=== PATIENT | female | born 1940 | race Two or more races ===

== ENCOUNTER 2023-01-13 09:41 | Emergency (ER) | payer MEDICARE, SELFPAY ==
--- NOTE | ~2023-01-13 | XR_ITS ---
EXAMINATION: XR CHEST CLINICAL INFORMATION: Cough COMPARISON: None available. TECHNIQUE: 2 views of the chest were obtained. FINDINGS: The lungs are hyperinflated. Degenerative changes in the thoracic spine. Heart size is normal. Atherosclerotic calcifications in the thoracic aorta. Prominence of the bilateral tej, right greater than left. There is no gross pneumothorax. No pleural effusion. No focal consolidation to suggest pneumonia. XR/XR chest 2V IMPRESSION: Hyperinflated lungs. Prominence of the bilateral tej, right greater than left, likely on the basis of vascularity, although adenopathy should also be considered. Direct correlation with prior images is recommended and if prior images are provided, an addendum will be dictated. In the absence of prior images, CT scan of the chest is recommended for further evaluation. This study was presented today 01/13/2023 at 11:55 AM for interpretation. Stat results provided at this time as requested by referring provider.
[2023-01-13 10:11] VITALS: BP 153/69; PULSE 75; RESP 16; TEMP 36.6; O2SAT 98; BMI 17.4
--- NOTE | 2023-01-13 11:29 | ED.GENADULT ---
HPI - General Adult General Chief complaint: General Medical Stated complaint: HBP/Cough Time Seen by Provider: 01/13/23 11:02 Source: patient and family (daughter ) Mode of arrival: ambulatory Limitations: no limitations History of Present Illness HPI narrative: This is an 82-year-old female history of hypertension, legally blind presenting with daughter who is concerned that mother has been having high blood pressure readings at home to 107/101 despite taking lisinopril for blood pressure control and has also been experiencing about a week to a week and a half of productive cough of clear sputum, worse at night, therefore patient having difficulties with sleeping. Daughter reports patient traveled from [place] about 3 weeks ago. No known sick contacts. Denies chest pain, shortness of breath, nausea, vomiting, abdominal pain, headache, vision changes, dizziness and weakness Related Data Previous Rx's Medication Instructions Recorded albuterol sulfate 90 mcg/actuation 2 inh inhalation Q4-6H PRN 01/13/23 breath activated powder inhaler shortness of breath or wheezing #1 ea doxycycline hyclate 100 mg capsule 100 mg PO BID 10 days #20 caps 01/13/23 prednisone 20 mg tablet 40 mg (2 x 20 mg) PO DAILY 5 days 01/13/23 #10 tabs Allergies Allergy/AdvReac Type Severity Reaction Status Date / Time No Known Allergies Allergy Verified 01/13/23 10:11 Review of Systems Review of Systems: Constitutional : No Weight loss, No Fever, No Chills, No Fatigue, No Malaise ENT/Mouth : No sore throat, No Rhinorrhea Eyes: No Eye Pain, No Swelling, No Redness Cardiovascular : No Chest Pain, No SOB, No Dyspnea on Exertion, No Orthopnea, No Edema, No Palpitations Respiratory : + Cough, + Sputum, No Wheezing Gastrointestinal : No Nausea, No Vomiting, No Diarrhea, No Constipation, No abdominal Pain, No Hematochezia, No Melena Genitourinary : No Dysuria, No Urinary Frequency, No Hematuria, Musculoskeletal : No joint pain, No Myalgias, No Joint Swelling Skin : No Skin Lesions, No rash Neuro : No Weakness, No Numbness, No Dizziness, No Headache Psych : No Anxiety/Panic, No Depression All other systems reviewed and are negative Yes all other systems are reviewed and are negative PMFSH Past Medical History Attestation statement: The following information was validated with the patient. Source: old records reviewed and nursing notes reviewed Social History Advance Directives: No Advance Directives Information Provided: Yes Physical Exam ED Vital Signs: Vital Signs - 24 hr 01/13/23 10:11 Temperature 97.8 F Pulse Rate 75 Respiratory Rate 16 Blood Pressure 153/69 H Pulse Oximetry 98 Oxygen Delivery Method Room Air BMI result Body Mass Index 17.4 vss Appearance: Alert.? Oriented X3.? No acute distress.? Head: Normocephalic, atraumatic, no step-offs or deformities Neck: Normal inspection.? Neck supple.? CVS: Normal heart rate and rhythm.? Pulses normal.? Respiratory: No respiratory distress.? Breath sounds normal.? Abdomen: Soft and nontender.? Skin: Skin warm and dry.? Normal skin color.? Normal skin turgor.? Extremities: No lower extremity edema.? No calf ttp. 5/5 strength to bilateral upper and lower extremities Neuro: Oriented X 3.? No motor deficit.? No sensory deficit. CN 2-12 intact Medical Decision Making Medical Decision Making [facility] Narrative: 1120 82-year-old female presents with complaints of productive cough of the white/clear sputum as well as high blood pressure readings at home currently taking lisinopril. Physical exam benign. This is likely essential hypertension, unlikely hypertensive urgency, emergency, stroke. Cough likely viral versus pneumonia versus bronchitis. Unlikely pulmonary embolism ( saturating 98% even after ambulation with a pulse rate of 75.) , acute respiratory distress, ACS, pneumothorax. Unlikely NICKIE cough Plan at this time viral testing, chest x-ray. Differential Diagnosis Differential Diagnoses: The differential diagnosis associated with the presentation includes This is likely essential hypertension, unlikely hypertensive urgency, emergency, stroke. Cough likely viral versus pneumonia versus bronchitis. Unlikely pulmonary embolism, acute respiratory distress, ACS, pneumothorax.Unlikely NICKIE cough Admission/Observation Consideration of admission/observation: Escalation of care including admission/observation considered Lab Data MDM Lab Attestation statement: I reviewed the patient's lab results. Labs: Lab Results 01/13/23 Range/Units 10:48 COVID-19 (JOSE) Negative (Negative) COVID-19 Clin Com See Note Influenza Type A (EDUARDO) Negative (Negative) Influenza Type B (EDUARDO) Negative (Negative) Influenza A & B Note See Note Independent Interpretation I performed an independent interpretation of an: Plain X-Ray Radiology Impression Discussion of test interpretation with radiology: I have reviewed the radiologist's reading. Prescription Management I considered prescription management with: Antibiotic Chronic Conditions Patient?s care impacted by: Hypertension Critical Care Time Critical Care Time Critical Care Time: No Discharge Plan Discharge Clinical Impression: Bronchitis Patient Disposition: Home, Self-Care Instructions: Acute Bronchitis (ED) Additional Instructions: Take your medications as prescribed. If you were prescribed antibiotics today, it is important that you take your medication to their entirety, do not skip any doses, do not finish them early. Follow-up with your primary care provider this week. Return to the emergency department with new or worsening symptoms. Such as fevers, chills, chest pain, shortness of breath, nausea, vomiting, dizziness, headache, vision changes, lethargy In case of emergency call 911 Please follow-up with the PCP patient will likely require CT of the chest for further evaluation of findings on x-ray. No need for emergent 1 here today. I attach primary care providers here in the area below XR/XR chest 2V IMPRESSION: Hyperinflated lungs. Prominence of the bilateral tej, right greater than left, likely on the basis of vascularity, although adenopathy should also be considered. Direct correlation with prior images is recommended and if prior images are provided, an addendum will be dictated. In the absence of prior images, CT scan of the chest is recommended for further evaluation. This study was presented today 01/13/2023 at 11:55 AM for interpretation. Stat results provided at this time as requested by referring provider. Prescriptions: New doxycycline hyclate 100 mg capsule 100 mg PO BID 10 Days Qty: 20 0RF prednisone 20 mg tablet 40 mg PO DAILY 5 Days Qty: 10 0RF albuterol sulfate 90 mcg/actuation aerosol powdr breath activated 2 inh inhalation Q4-6H PRN (Reason: shortness of breath or wheezing) Qty: 1 0RF Referrals: [facility] Family Medicine [Provider Group] - 1 day [facility] Primary CareErrol [Provider Group] - 1 day [facility] Primary CareTodd [Provider Group] - 1 day PhysicianRanulfo [Primary Care Provider] - 2 days Stand Alone Forms: Work/School Release
[2023-01-13 11:40] LABS: COVID-19 Test Negative (Negative); IDNOW Serial# 08D9AD1C; IDNOW Serial# BCCEAD1C; Influenza A Negative (Negative); Influenza B2 Negative (Negative)
== END 2023-01-13 12:36 | disposition home or self-care (01) ==
PROVIDERS: Emergency Provider Emergency Medicine
DX: J40 Bronchitis, not specified as acute or chronic (principal); Z11.52 Encounter for screening for COVID-19
CPT/HCPCS: 71046; 87502; 87635; 99282; 99283

== ENCOUNTER 2023-03-19 20:03 | Emergency (ER) | payer OTHER, SELFPAY ==
--- NOTE | ~2023-03-19 | CT_ITS ---
EXAMINATION: CT HEAD WITHOUT CONTRAST CLINICAL INFORMATION: Headache. Very high BP. AMS. COMPARISON: CT brain 01/16/2010. TECHNIQUE: Contiguous axial imaging was performed from the skull base to vertex without intravenous administration of contrast. This CT examination was performed using dose optimization techniques as appropriate, variously including the following: *Automated exposure control *Adjustment of mA and/or kV according to patient size (this includes techniques or standardized protocols for targeted exams where dose is matched to indication/reason for exam; i.e. extremities or head) *Use of iterative reconstruction technique DLP: 552 mGy-cm FINDINGS: There is no acute intra-axial, extra-axial bleed, masses or midline shift. There is hypodensity seen in the left parieto-occipital lobe suspicious for subacute to old ischemic changes. No additional areas of hypodensity seen. The lateral ventricles are symmetrical in size and configuration with mild enlargement. There is mild periventricular hypodensity in both cerebral hemispheres suggestive of chronic small vessel ischemic changes. Bone windows reveal diffuse mucoperiosteal thickening of paranasal sinuses. No scalp soft tissue abnormality seen. CT/CT head/brain wo IV con IMPRESSION: Hypodensity left parietal occipital lobe suspicious for subacute to old ischemic changes. There is no acute intracranial bleed.
[2023-03-19 20:13] VITALS: BP 160/100; PULSE 70; O2SAT 98; BMI 30.1
[2023-03-19 20:23] VITALS: BP 219/90; PULSE 86; TEMP 37.2; O2SAT 96
--- NOTE | 2023-03-19 20:26 | ECG_ITS ---
Test Reason : HIGH BP/DIZZYNESS Blood Pressure : / mmHG Vent. Rate : 078 BPM Atrial Rate : 078 BPM P-R Int : 148 ms QRS Dur : 082 ms QT Int : 410 ms P-R-T Axes : 084 082 078 degrees QTc Int : 467 ms Normal sinus rhythm Minimal voltage criteria for LVH, may be normal variant ( Sokolow-Herr ) Borderline ECG When compared to the previous EKG of No significant changes seen Referred By: Tiffanie Lindsay Electronically Signed By:MOHINDER WILLIS MD
--- NOTE | 2023-03-19 20:30 | ED_ITS ---
HPI - General Adult General Chief complaint: General Medical Stated complaint: CHEST PAIN DIZZINESS Time Seen by Provider: 03/19/23 20:05 Source: patient Mode of arrival: EMS Limitations: no limitations History of Present Illness HPI narrative: Patient comes to the emergency room by ambulance. According to EMS, 911 was called because the patient had been complaining of dizziness, headache, and her blood pressure was 231/95. Then, when patient arrived, she told her nurse that she only had a headache. By the time I spoke with the patient, patient said that she had no symptoms since she did not know what she is doing here. Patient has history of dementia and is unable to give us a clear history. Per EMS, blood pressure with them was 160/100. At this time, patient denies chest pain or shortness of breath, no abdominal pain, patient is legally blind Related Data Previous Rx's Medication Instructions Recorded albuterol sulfate 90 mcg/actuation 2 inh inhalation Q4-6H PRN 01/13/23 breath activated powder inhaler shortness of breath or wheezing #1 ea doxycycline hyclate 100 mg capsule 100 mg PO BID 10 days #20 caps 01/13/23 prednisone 20 mg tablet 40 mg (2 x 20 mg) PO DAILY 5 days 01/13/23 #10 tabs Allergies Allergy/AdvReac Type Severity Reaction Status Date / Time No Known Allergies Allergy Verified 01/13/23 10:11 Review of Systems 2 Review of Systems: Reports headache earlier today, no symptoms at this time Yes Unobtainable due to mental condition (Patient has history of dementia) [facility] Past Medical History Medical History (Updated 03/19/23 @ 21:56 by Tiffanie Lindsay MD) Legally blind Hypertension Social History Social History Advance Directives: No Advance Directives Information Provided: No Physical Exam ED Vital Signs: Vital Signs - 24 hr 03/19/23 20:23 03/19/23 21:08 Temperature 98.9 F Pulse Rate 86 Blood Pressure 219/90 H 209/76 H Pulse Oximetry 96 Oxygen Delivery Method Room Air BMI result Body Mass Index 30.1 Const Other: Appearance: Alert. Oriented X3. No acute distress. Eyes: Patient is legally blind ENT: Pharynx normal. Neck: Normal inspection. Neck supple. No lymph nodes noted. No crepitus CVS: Normal heart rate and rhythm. Pulses normal. Normal S1 and S2 Respiratory: No respiratory distress. Breath sounds normal. No Wheezing. No rales Abdomen: Soft and nontender. No rigidity. No distention. Skin: Skin warm and dry. Normal skin color. Normal skin turgor. Extremities: No lower extremity edema. No Lacerations. No Rash Neuro: Oriented X 3. No motor deficit. No sensory deficit. Moving all extremities. No slurred speech. CN 2 through 12 grossly intact Psych: calm, cooperative, normal affect Course Course Course Narrative: Here in the emergency room, patient blood pressure is 219/90. All of patient's labs and imaging pending -patient given 1 dose of 100 mg p.o. labetalol Medications Administered Discontinued Medications Generic Name Dose Route Start Last Admin Trade Name Freq PRN Reason Stop Dose Admin Labetalol HCl 100 mg 03/19/23 20:31 03/19/23 20:42 Labetalol Hcl 100 Mg Tablet PO 03/19/23 20:32 100 mg ONCE ONE Administration Protocol Medical Decision Making Medical Decision Making [facility] Narrative: -patient's chemistry pending, troponin slightly bumped 2.0. BNP negative. Patient's troponin to be repeated admit -patient's blood pressure 219/90 on arrival, patient was given 100 mg of p.o. labetalol, blood pressure improved to 100 80s systolic. Heart rate in the 60s. Patient states that she no longer has headache. Head CT pending -current blood pressure 1 80s systolic, patient given 1 dose of amlodipine 10 mg. -sign-out given to my colleague Dr. Hardin, please follow-up with the patient's blood pressure, troponin number to admit night and head CT Differential Diagnosis Differential Diagnoses: The differential diagnosis associated with the presentation includes (Hypertensive urgency, hypertensive emergency, hypertension) Admission/Observation Consideration of admission/observation: Escalation of care including admission/observation considered (Patient's blood pressure is still elevated, overall patient feeling better, admission considered) Lab Data [facility] Lab Attestation statement: I reviewed the patient's lab results. 03/19/23 21:06 03/19/23 21:06 Labs: Lab Results 03/19/23 Range/Units 21:06 WBC 7.8 (4.8-10.8) X10*3/uL RBC 3.45 L (4.20-5.50) X10*6/uL Hgb 10.2 L (12.0-16.0) g/dl Hct 31.4 L (37.0-47.0) % MCV 91.0 (80.0-98.0) fL MCH 29.6 (27.0-33.0) pg MCHC 32.5 (31.0-35.0) g/dl RDW 13.7 (11.0-16.0) % Plt Count 253 (160-400) X10*3/uL MPV 11.1 (9.4-12.3) fL Immature Gran % (Auto) 0.3 (0.0-0.4) % Neut % (Auto) 69.4 (45-73) % Lymph % (Auto) 20.6 (20-40) % [place] % (Auto) 6.5 (2-11) % Eos % (Auto) 2.4 (0-4) % Baso % (Auto) 0.8 (0-2) % Lymph # (Auto) 1.6 (1.2-4.9) X10*3/uL [place] # (Auto) 0.5 (0.1-1.2) X10*3/uL Eos # (Auto) 0.2 (0.0-0.4) X10*3/uL Baso # (Auto) 0.1 (0.0-0.2) X10*3/uL Abs Immat Gran (auto) 0.02 (0.00-0.03) X10*3/uL Absolute Neuts (auto) 5.4 (2.0-8.3) x10*3/uL Absolute Nucleated RBC 0.000 (0.0-0.012) X10*3/uL Nucleated RBC % (auto) 0.0 (0.0-0.2) /100WBC PT 11.0 L (11.1-13.3) SEC INR 0.9 (0.9-1.1) Troponin I High Sens 23.0 H (<3.5-17.0) ng/L B-Natriuretic Peptide 54 (<100) pg/mL Urine Color Yellow Urine Appearance Clear Urine pH 6.5 (5.0-9.0) Ur Specific Thayer 1.010 (1.005-1.025) Urine Protein Negative (Neg-Trace) mg/dL Urine Glucose (UA) Negative (Negative) mg/dL Urine Ketones Negative (Negative) mg/dL Urine Blood Trace H (Negative) Urine Nitrite Negative (Negative) Ur Leukocyte Esterase Moderate (2+) H (Negative) Urine RBC 3-5 H (0-2) /HPF Urine WBC 6-10 H (0-5) /HPF Ur Squamous Epith Cells 0-2 (0-2) /HPF Urine Bacteria None Seen (None Seen) Hyaline Casts 0-2 (0-2) /LPF Critical Care Time Critical Care Time Critical Care Time: Yes Total Critical Care Time: 60 Attestation: I have personally provided critical care time. Time includes review of lab data, radiology results, discussion with consultants, and monitoring for potential decompensation. Intervention performed as documented. Discharge Plan Discharge Clinical Impression: Hypertensive urgency, Headache Patient Disposition: Still a Patient Prescriptions: No Action doxycycline hyclate 100 mg capsule 100 mg PO BID 10 Days Qty: 20 0RF prednisone 20 mg tablet 40 mg PO DAILY 5 Days Qty: 10 0RF albuterol sulfate 90 mcg/actuation aerosol powdr breath activated 2 inh inhalation Q4-6H PRN (Reason: shortness of breath or wheezing) Qty: 1 0RF
[2023-03-19] MEDS: Labetalol HCL 100 MG TABLET PO (20:42)
[2023-03-19 21:08] VITALS: BP 209/76
[2023-03-19 21:13] LABS: MANUAL DIFF FLAG NO
[2023-03-19 21:15] LABS: Basophils Absolute Auto 0.1 X10*3/uL (0.0-0.2); Basophils Percent Auto 0.8 % (0-2); Eosinophils Absolute Auto 0.2 X10*3/uL (0.0-0.4); Eosinophils Percent Auto 2.4 % (0-4); Hematocrit 31.4 % (37.0-47.0); Hemoglobin 10.2 g/dl (12.0-16.0); Imm Gran Abs Auto 0.02 X10*3/uL (0.00-0.03); Imm Gran Pct Auto 0.3 % (0.0-0.4); Lymphocytes Absolute Auto 1.6 X10*3/uL (1.2-4.9); Lymphocytes Percent Auto 20.6 % (20-40); Mean Corpuscular HGB Conc 32.5 g/dl (31.0-35.0); Mean Corpuscular Hemoglobin 29.6 pg (27.0-33.0); Mean Platelet Volume 11.1 fL (9.4-12.3); Monocytes Absolute Auto 0.5 X10*3/uL (0.1-1.2); Monocytes Percent Auto 6.5 % (2-11); Neutrophils Absolute Auto 5.4 x10*3/uL (2.0-8.3); Neutrophils Percent Auto 69.4 % (45-73); Platelet Count 253 X10*3/uL (160-400); Red Blood Count 3.45 X10*6/uL (4.20-5.50); Red Cell Distribution Width 13.7 % (11.0-16.0); White Blood Count 7.8 X10*3/uL (4.8-10.8)
[2023-03-19 21:16] LABS: Appearance Urine Clear; Color Urine Yellow; Glucose Urine UA Negative (Negative); Leukocyte Esterase Urine Moderate (2+) (Negative); Nitrite Urine Negative (Negative); PH 6.5 (5.0-9.0); UMIC TRIGGER UACC YES; Urine Blood Trace (Negative); Urine Ketones Negative (Negative); Urine Protein Negative (Neg-Trace)
[2023-03-19 21:20] LABS: INTERNATIONAL NORM RATIO 0.9 (0.9-1.1)
[2023-03-19 21:21] LABS: Bacteria Urine None Seen (None Seen); Hyaline Casts Urine 0-2 /LPF (0-2); Squamous Epithelial Cell Urine 0-2 /HPF (0-2); UACC Culture Trigger YES
[2023-03-19 21:35] LABS: B Type Natriuretic Peptide 54 pg/mL (<100)
--- NOTE | 2023-03-19 21:37 | PC.NURSE ---
PT STARTED TO VERBALLY YELL AT STAFF AND HIT SELF, PROVIDER AWARE, SECURITY CALLED , PT MEDICATED
[2023-03-19 21:54] VITALS: BP 173/71; PULSE 62
[2023-03-19 22:10] VITALS: BP 185/68; PULSE 63
[2023-03-19] MEDS: amLODIPine Besylate 10 MG TABLET PO (22:16)
[2023-03-19 22:50] LABS: Alanine Aminotransferase 12 U/L (0-31); Albumin Level 3.7 g/dL (3.5-5.0); Alkaline Phosphatase 59 U/L (39-117); Anion Gap 11 (12-20); Aspartate Amino Transferase 18 U/L (5-31); Bilirubin Direct 0.1 mg/dL (0.0-0.5); Bilirubin Total 0.3 mg/dL (0.0-1.0); Blood Urea Nitrogen 21 mg/dL (9-16); Calcium 9.8 mg/dL (8.4-10.2); Carbon Dioxide 29 mmol/L (22-29); Chloride 106 mmol/L (96-108); Creatinine Clr Calc Pharmacy 45.8; Estimated Glomerular Filt Rate > 60; Glucose Random 120 mg/dL (60-115); Potassium 4.3 mmol/L (3.3-5.1); Sodium 142 mmol/L (135-145); Total Protein 6.7 g/dL (6.5-8.0)
[2023-03-19 22:57] LABS: Troponin-I High Sensitivity 25.1 ng/L (<3.5-17.0)
[2023-03-19 23:44] VITALS: BP 176/73
[2023-03-19] MEDS: Aspirin Enteric Coated 81 MG TABLET.DR PO (23:55)
== END 2023-03-20 00:09 | disposition home or self-care (01) ==
PROVIDERS: Emergency Medicine; Emergency Provider Internal Medicine; PCP Internal Medicine
DX: I16.0 Hypertensive urgency (principal); R51.9 Headache, unspecified; R42 Dizziness and giddiness; I10 Essential (primary) hypertension; Z79.899 Other long term (current) drug therapy
CPT/HCPCS: 36415; 70450; 80048; 80076; 81001; 83880; 84484; 85025; 85610; 87086; 93005; 99284; 99285

== ENCOUNTER → 2023-03-19 20:26 | Outpatient (BNV) | payer OTHER, SELFPAY | PROVIDERS: Emergency Provider Internal Medicine; PCP Internal Medicine; Visit Provider Internal Medicine Cardiovascular Disease | DX: R07.9 Chest pain, unspecified (principal) | CPT/HCPCS: 93010 ==

== ENCOUNTER 2023-03-21 09:19 | Outpatient (REF) | payer OTHER, SELFPAY ==
[2023-03-21 09:48] LABS: MANUAL DIFF FLAG NO
[2023-03-21 09:57] LABS: Basophils Absolute Auto 0.1 X10*3/uL (0.0-0.2); Basophils Percent Auto 1.3 % (0-2); Eosinophils Absolute Auto 0.2 X10*3/uL (0.0-0.4); Eosinophils Percent Auto 3.2 % (0-4); Hematocrit 35.8 % (37.0-47.0); Hemoglobin 11.5 g/dl (12.0-16.0); Imm Gran Abs Auto 0.01 X10*3/uL (0.00-0.03); Imm Gran Pct Auto 0.2 % (0.0-0.4); Lymphocytes Absolute Auto 2.1 X10*3/uL (1.2-4.9); Lymphocytes Percent Auto 33.8 % (20-40); Mean Corpuscular HGB Conc 32.1 g/dl (31.0-35.0); Mean Corpuscular Hemoglobin 29.1 pg (27.0-33.0); Mean Corpuscular Volume 90.6 fL (80.0-98.0); Mean Platelet Volume 10.6 fL (9.4-12.3); Monocytes Absolute Auto 0.4 X10*3/uL (0.1-1.2); Neutrophils Absolute Auto 3.5 x10*3/uL (2.0-8.3); Neutrophils Percent Auto 55.5 % (45-73); Platelet Count 320 X10*3/uL (160-400); Red Blood Count 3.95 X10*6/uL (4.20-5.50); White Blood Count 6.3 X10*3/uL (4.8-10.8)
[2023-03-21 10:45] LABS: Alanine Aminotransferase 15 U/L (0-31); Albumin Level 4.2 g/dL (3.5-5.0); Alkaline Phosphatase 69 U/L (39-117); Anion Gap 12 (12-20); Aspartate Amino Transferase 20 U/L (5-31); Bilirubin Total 0.7 mg/dL (0.0-1.0); Blood Urea Nitrogen 18 mg/dL (9-16); Carbon Dioxide 32 mmol/L (22-29); Chloride 102 mmol/L (96-108); Cholesterol 195 mg/dL (<200); Estimated Glomerular Filt Rate 51; Glucose Random 107 mg/dL (60-115); HDL Cholesterol 77 mg/dL (>40); LDL Cholesterol Calculated 102 mg/dL (<100); Sodium 142 mmol/L (135-145); Total Protein 7.7 g/dL (6.5-8.0); Triglycerides 84 mg/dL (<150)
== END 2023-03-21 09:20 | disposition home or self-care (01) ==
LOC: HO.LAB 09:19
PROVIDERS: PCP Internal Medicine; Visit Provider Internal Medicine
DX: Z00.01 Encounter for general adult medical examination with abnormal findings (principal); R93.89 Abnormal findings on diagnostic imaging of other specified body structures; I10 Essential (primary) hypertension; H54.3 Unqualified visual loss, both eyes; H35.30 Unspecified macular degeneration; F02.80 Dementia in other diseases classified elsewhere, unspecified severity, without behavioral disturbance, psychotic disturbance, mood disturbance, and anxiety; R82.90 Unspecified abnormal findings in urine
CPT/HCPCS: 36415; 80053; 80061; 82306; 85025; 87086

== ENCOUNTER 2023-03-24 10:44 | Outpatient (REF) | payer OTHER, SELFPAY ==
[2023-03-26 22:09] LABS: TS Negative Control Passed; TS Panel A 1; TS Panel B 0; TS Positive Control Passed; TSpotTB Negative (Negative)
== END 2023-03-24 10:45 | disposition home or self-care (01) ==
LOC: HO.LAB 10:44
PROVIDERS: PCP Internal Medicine; Visit Provider Internal Medicine
DX: Z00.01 Encounter for general adult medical examination with abnormal findings (principal); F02.80 Dementia in other diseases classified elsewhere, unspecified severity, without behavioral disturbance, psychotic disturbance, mood disturbance, and anxiety; H35.30 Unspecified macular degeneration; H54.3 Unqualified visual loss, both eyes; I10 Essential (primary) hypertension; R93.89 Abnormal findings on diagnostic imaging of other specified body structures
CPT/HCPCS: 36415; 86481

== ENCOUNTER 2023-08-13 11:35 | Outpatient (REF) | payer OTHER, SELFPAY ==
[2023-08-13 13:11] LABS: MANUAL DIFF FLAG NO
[2023-08-13 13:18] LABS: Basophils Absolute Auto 0.1 X10*3/uL (0.0-0.2); Eosinophils Absolute Auto 0.2 X10*3/uL (0.0-0.4); Hematocrit 35.8 % (37.0-47.0); Hemoglobin 11.3 g/dl (12.0-16.0); Imm Gran Abs Auto 0.02 X10*3/uL (0.00-0.03); Imm Gran Pct Auto 0.2 % (0.0-0.4); Lymphocytes Absolute Auto 2.1 X10*3/uL (1.2-4.9); Mean Corpuscular HGB Conc 31.6 g/dl (31.0-35.0); Mean Platelet Volume 10.7 fL (9.4-12.3); Monocytes Absolute Auto 0.5 X10*3/uL (0.1-1.2); Monocytes Percent Auto 6.3 % (2-11); Neutrophils Absolute Auto 5.2 x10*3/uL (2.0-8.3); Neutrophils Percent Auto 64.5 % (45-73); Platelet Count 281 X10*3/uL (160-400); Red Blood Count 3.77 X10*6/uL (4.20-5.50); Red Cell Distribution Width 14.4 % (11.0-16.0)
[2023-08-13 13:53] LABS: Ferritin 26 ng/mL (10-250)
[2023-08-13 14:06] LABS: Folate > 20.0 ng/mL (> or = 4.0); Vitamin B12 893 pg/mL (200-900)
== END 2023-08-13 11:36 | disposition home or self-care (01) ==
LOC: HO.10HDL 11:35
PROVIDERS: Visit Provider Internal Medicine
DX: D64.9 Anemia, unspecified (principal); F01.50 Vascular dementia, unspecified severity, without behavioral disturbance, psychotic disturbance, mood disturbance, and anxiety; H54.3 Unqualified visual loss, both eyes; I10 Essential (primary) hypertension; R05.9 Cough, unspecified; R32 Unspecified urinary incontinence
CPT/HCPCS: 36415; 82607; 82728; 82746; 85025; 87086

== ENCOUNTER 2023-11-12 11:02 | Outpatient (REF) | payer OTHER, SELFPAY | END 2023-11-12 11:03 | disposition home or self-care (01) | LOC: HO.10HDLNP 11:02 | PROVIDERS: Visit Provider Internal Medicine | DX: N39.0 Urinary tract infection, site not specified (principal) | CPT/HCPCS: 87086 ==

== ENCOUNTER 2023-12-29 14:20 | Outpatient (AMB) | payer OTHER, SELFPAY ==
[2023-12-29 14:43] VITALS: BP 132/70; PULSE 65; O2SAT 97; BMI 20.9
--- NOTE | 2023-12-29 14:43 | MHC.OFFVIS ---
Vital Signs 12/29/23 14:43 Height 5 ft Weight 106 lb 14.787 oz BMI 20.9 BP 132/70 Blood Pressure Location Rt brachial Position Sitting Pulse 65 Pulse Source Pulse Oximeter Pulse Oximetry (%) 97 Oxygen Delivery Method Room Air Intake Visit Reasons: chronic cough Allergies No Known Allergies Allergy (Verified 12/29/23 14:49) HPI HPI chronic cough: Details: Chica is pleasant 83 year old female, never smoker, with underlying HTN and legally blind. She was referred by PCP for pulmonary evaluation for chronic cough. She is accompanied by her daughter and ambulating in a wheelchair. She reports dry cough for many years and attributes it to prior exposure while living in [place], moved here last year, where there was extensive diesel fumes/exhaust in her neighborhood. She denies wheezing, chest tightness or dyspnea. She denies fevers or chills. She denies reflux. She denies h/o asthma. She was recently prescribed albuterol with a nebulizer and has been using with good effect. She has previously trialed antibiotics, prednisone, antihistamines and OTC medications with minimal change. She does note more notable cough with eating and drinking. Denies prior barium swallow evaluation. She reports daughter with asthma otherwise no pertinent family history. She denies second hand smoke exposure. [facility] Medical History (Updated 12/30/23 @ 15:07 by Tiffanie Smith NP) Legally blind Hypertension Social History (Updated 12/29/23 @ 14:49 by Josy Price CMA) Patient Tobacco Use Status: Never used Tobacco Review of Systems Const Denies chills, Denies excessive sweating, Denies fever(s), Denies headache(s) and Denies night sweats Eyes Denies dry eyes, Denies irritation and Denies itchy eyes ENT Reports Normal hearing present, Denies headache(s), Denies nasal congestion, Denies nasal discharge, Denies post nasal drip and Denies sore throat Card Denies chest pain, Denies chest pain at rest, Denies chest pain with activity, Denies claudication, Denies leg edema, Denies dyspnea, Denies dyspnea on exertion, Denies orthopnea and Denies paroxysmal nocturnal dyspnea Resp Denies chest congestion, Denies excessive phlegm production, Denies pain on inspiration, Denies pain with cough, Denies dyspnea, Denies dyspnea on exertion, Denies stridor and Denies wheezing Musc Denies myalgias Neuro Reports Normal hearing present and Denies headache(s) Endo Denies excessive sweating Marcio/Lymph Denies lymphadenopathy Aller/Immun Denies itchy eyes, Denies seasonal rhinorrhea and Denies wheezing Physical Exam Vital Signs: Last Vital Signs Pulse 65 12/29/23 14:43 BP 132/70 12/29/23 14:43 Pulse Ox 97 12/29/23 14:43 Oxygen Delivery Method Room Air 12/29/23 14:43 BMI result Body Mass Index 20.9 Const General: cooperative, healthy appearing, comfortable, no acute distress, well developed and alert Nutritional Appearance: thin Orientation/consciousness: oriented to person and oriented to place Limitations: wheelchair HEENT Head: Yes normal to inspection, Yes normocephalic and Yes atraumatic Ears: hearing grossly normal bilaterally and external ears normal Eyes General: appearance normal, both eyes and all related structures Eyelids: Yes eyelids normal Sclerae: sclerae normal EOM: EOMs intact bilaterally Neck Neck: Yes normal visual inspection and Yes no lymphadenopathy Lymphatic: no lymphadenopathy noted Chest Chest palpation & inspection: normal inspection of the chest Resp Effort & Inspection: normal respiratory effort, able to speak in complete sentences, no audible wheezes, Actively coughing, no stridor, not tachypneic, no tripod positioning and no use of accessory muscles Auscultation: diminished lung sounds Cardio Jugular venous distension: no JVD Rate: regular rate Rhythm: regular rhythm Skin Other: warm, dry General skin exam: no rashes or lesions noted Neuro General: oriented to person and oriented to place Cranial nerves: Yes Normal hearing present Cognition (Neuro): normal cognition Gait exam (Neuro): Normal gait present Extrem General: Yes normal to inspection, Yes capillary refill normal, Yes no clubbing, cyanosis or edema and Yes no pedal edema Psych Appearance: grossly normal and well kempt Speech and movement: Normal speech and movement present and Clear speech present Affect: normal affect Attitude: cooperative Thought process: Normal thought process present Thought content: Normal thought content present Insight: Good insight present (Psych) Judgement: Good judgement present (Psych) Assessment & Plan Assessment & Plan (1) Chronic cough: Code(s): R05.3 - Chronic cough Category: Medical (2) Dysphagia: Code(s): R13.10 - Dysphagia, unspecified Category: Medical Plan Chica's symptoms are likely multifactorial. She reports good effect with albuterol nebulizer, advised to continue. She notes coughing worsens with eating/drinking. Will send for barium swallow as patient may have a component of microaspiration. Will also obtain CXR today. All questions were answered and patient is in agreement of plan. Will follow up in 6-8 weeks or sooner if needed. Orders: Orders XR chest 2V 12/29/23 R05.3 - Chronic cough FL Modified Barium Swallow Today R05.3 - Chronic cough, R13.10 - Dysphagia, unspecified Coding Level of Care Code New Pt Level 4 (51179) Diagnoses Chronic cough R05.3 Dysphagia R13.10
== END 2023-12-29 15:18 | disposition home or self-care (01) ==
PROVIDERS: PCP Internal Medicine; Referring Provider Internal Medicine; Visit Provider Nurse Practitioner Family
DX: R05.3 Chronic cough (principal); R13.10 Dysphagia, unspecified
CPT/HCPCS: 99204

== ENCOUNTER 2023-12-29 14:20 | Outpatient (REF) | payer OTHER, SELFPAY ==
--- NOTE | ~2023-12-29 | XR_ITS ---
EXAMINATION: XR CHEST CLINICAL INFORMATION: Chronic cough COMPARISON: 01/13/2023 TECHNIQUE: 2 views of the chest were obtained. FINDINGS: Heart, mediastinum and vascularity within normal limits. Aortic calcified hyperinflation. No consolidations. Vague opacity identified posterior lung base on lateral view. No effusions or pneumothoraces. Demineralization and flowing osteophytes. XR/XR chest 2V IMPRESSION: Posterior opacity, possibly atelectasis, underlying lesion not excluded. Consider short-term radiographic follow-up. Electronically signed by: Kandy Mendoza MD 12/30/2023 08:42 AM EST
== END 2023-12-29 14:21 | disposition home or self-care (01) ==
LOC: HO.XRAY 14:20
PROVIDERS: PCP Internal Medicine; Referring Provider Internal Medicine; Visit Provider Nurse Practitioner Family
DX: R05.3 Chronic cough (principal); R13.10 Dysphagia, unspecified
CPT/HCPCS: 71046; 99202

== ENCOUNTER 2024-01-28 14:18 | Outpatient (REF) | payer OTHER, SELFPAY ==
--- NOTE | ~2024-01-28 | FL_ITS ---
EXAMINATION: Modified Barium Swallow CLINICAL INFORMATION: Dysphagia. COMPARISON: None. TECHNIQUE: Modified barium swallow was performed under lateral fluoroscopy with patient in standing position. Barium mixed with solids and liquids of different consistencies was administered by the speech pathologist. Examination was recorded in the fluoroscopy suite. FINDINGS: Trace laryngeal penetration seen with thin barium. No aspiration was observed. FLUOROSCOPY TIME: 1 minute 27 seconds Number of Spot Images: 1/A DOSE AREA PRODUCT: 565 uGy-m2 (microgray-meter squared) FL/FL Modified Barium Swallow IMPRESSION: 1. Trace laryngeal penetration with thin barium. No subglottic aspiration was observed. Refer to the speech therapy report for further clarification This procedure was performed by Higinio Marie PA-C, and supervised by Dr. Riddle Electronically signed by: Alessandro Riddle MD 02/06/2024 03:55 PM AUGUST
--- NOTE | 2024-01-30 16:53 | MHC.SL.IMP ---
Date of Plan of Treatment: 01/28/24 Onset of Symptoms/Illness: 01/05/24 Date Treatment Started: 01/28/24 Admitting Diagnosis: Chronic cough Primary Speech & Language Diagnosis: R13.12 Oropharyngeal Phase Dysphagia Reason for Today's Visit: 58673 Modified Barium Swallow Study Pre-evaluation Dietary Consistencies: Regular Pre-evaluation Liquid Consistency: Thin Pre-evaluation Medication Administration: Whole with Liquid Medical History: Modified Barium Swallow Study Fluoroscopic Evaluation of Swallowing Function CPT Code 31305 Evaluation Year: 2023 Reason for Study: Difficulty swallowing Referring Physician: Tiffanie Smith COMPRESSOR SERVICE TECHNICIAN Evaluating Clinician: Heena Rivas MA, CCC-INSTRUMENT FITTER Study Number: 1 Patient Name: Chica Ortega Status: Outpatient Age: 83 Gender: Female Medical History HTN, legally blind Current (pre-evaluation) Intake/Diet: Route: PO Diet Grade: Regular Liquid Consistencies: Thin Pre-Study Functional Oral Intake Scale (FOIS): 7- Total oral intake with no restrictions Pain: None reported at time of study SUBJECTIVE: Patient is an 83 year old female referred for a modified barium swallow study by the Pulmonology office. She has been experiencing chronic cough and coughing with eating and drinking as well. Patient denies odynophagia and globus sensation. She is not on a modified diet at this time. Oral Motor Exam Facial Symmetry: Symmetrical Mouth Occlusion: Normal Oral-Facial Teeth Characteristics: Partially Missing Spaces Tongue Size: Normal Is patient able to manage secretions?: Yes Is patient able to produce volitional cough?: Yes Food and Liquid Trials: Oral Impairment: Lip Closure: Did not test Oral Impairment: Tongue Control During Bolus Hold: Did not test Oral Impairment: Bolus Preparation/Mastication: 1=Slow prolonged chewing/mashing with complete re-collection Oral Impairment: Bolus Transport/Lingual Motion: 2=Slowed tongue motion Oral Impairment: Oral Residue: 2=Residue collection on oral structures Oral Impairment:Initiation of Pharyngeal Swallow: 3=Bolus head in pyriforms Pharyngeal Impairment: Soft Palate Elevation: 0=No bolus between soft palate (SP)/pharyngeal wall (PW) Pharyngeal Impairment: Laryngeal Elevation: 1=Partial thyroid cartilage/arytenoids to epiglottic petiole movement Pharyngeal Impairment: Anterior Hyoid Excursion: 1=Partial anterior movement Pharyngeal Impairment: Epiglottic Movement: 1=Partial inversion Pharyngeal Impairment: Laryngeal Vestibular Closure:: 1=Incomplete: narrow column air/contrast in laryngeal vestibule Pharyngeal Impairment: Pharyngeal Stripping Wave: 1=Present: diminished Pharyngeal Impairment: Pharyngeal Contraction: Did not test Pharyngeal Impairment: Pharyngoesophageal Segment Openin=Partial distention/partial duration: partial obstruction of flow Pharyngeal Impairment: Tongue Base (TB) Retraction: 3=Wide column of contrast/air between TB and posterior PW Pharyngeal Impairment: Pharyngeal Residue: 2=Collection of residue within or on pharyngeal structures Pharyngeal Impairment: Esophageal Clearance Upright Position: Did not test Impressions and Recommendations Clinical Observations: OBJECTIVE: Time-out: performed at 15:00 Evaluation Start: 14:30; Stop: 14:40 Patient Positioning: Standing Viewing Planes: LATERAL ONLY Contrast: MBSImP? Standardized Protocol using commercially prepared, standardized Barium viscosities, including: Varibar? THIN LIQUID (40% w/v, <15 cps) , Varibar? PUDDING (40% w/v, <5020-1433 cps) , 1/2 Shortbread Cookie (1 x1 x.25 ) MBSImP ID: [id number] MBSImP Results: Lip closure for intraoral bolus containment could not be assessed due to logistical reasons not related to physiologic impairment. Tongue control during bolus hold could not be assessed due to logistical reasons not related to physiologic impairment. Bolus preparation and mastication resulted in slow, prolonged chewing/mashing but with complete re-collection. Bolus transport/lingual motion was with slowed tongue motion. Oral residue was a collection on oral structures. Initiation of the pharyngeal swallow occurred when the bolus head was in the pyriform sinuses. Soft palate elevation resulted in no bolus between the soft palate and the pharyngeal wall. Laryngeal elevation was decreased, with partial superior movement of the thyroid cartilage/partial approximation of the arytenoids to the epiglottic petiole. Anterior hyoid excursion demonstrated partial anterior movement. Epiglottic movement resulted in partial inversion. Laryngeal vestibular closure was incomplete, with a narrow column of air/contrast noted within the laryngeal vestibule at the height of the swallow. Pharyngeal stripping wave was present, but diminished. Pharyngeal contraction could not be determined due to logistical reasons not related to physiologic impairment. Pharyngoesophageal segment opening demonstrated partial distension/partial duration, with partial obstruction of bolus flow. Tongue base retraction allowed a wide column of contrast or air between the retracted tongue base and the posterior pharyngeal wall. Pharyngeal residue was a collection of residue within or on pharyngeal structures. Esophageal clearance in the upright position could not be assessed due to logistical reasons not related to physiologic impairment. Oral Impairment Score: 8 (absence of score, component 1component 2) Pharyngeal Impairment Score: 11 (absence of score, component 13) Esophageal Impairment Score: --- (absence of score, component 17) Laryngeal Penetration and Aspiration: Penetration was observed in today's study. Thin Contrast entered the airway, remained above the vocal folds, and was ejected from the airway. ASSESSMENT: Clinician Assessment: This exam was conducted by the radiologist and the speech pathologist. Patient was standing for lateral view only. She fed herself without difficulty and trialed thin (via cup sips), puree, and regular texture solid. Mastication was slowed and prolonged, characterized by piece meal deglutition. Also note slowed posterior lingual movement. There was mild residue coating the tongue and floor of mouth. Pharyngeal swallow trigger was delayed, initiated as the bolus reached the pyriforms. No evidence of nasopharyngeal reflux. Partial laryngeal elevation with partial epiglottic inversion and partial laryngeal vestibular closure. Episode of flash penetration with sip of thin liquid. No evidence of aspiration with intake of liquids and solids during this exam. Mild to moderate pooling in the valleculae and pyriform sinuses with coating on the tongue base. Pharyngeal residue was mostly cleared with subsequent swallows. Partial distention and partial duration through the pharyngoesophgeal segment opening. Liquid Intake Recommendation: Thin Liquid Intake Strategies: Small Sips Dietary Recommendations: Regular Medication Administration: Whole with Liquid Please contact the pharmacy regarding appropriate crushable or liquid drug formulations that are available whenever modified delivery is recommended. Compensatory Strategies Recommended: Sitting Upright (90 deg), Small Bites and Sips, Alternate Liquids/Solids, Rate of Ingestion Change, Avoid Specific Foods Recommendation for Speech Therapy: NA:Typical Evaluation Text Comment: Intake Recommendations: Route: PO Diet Grade: Regular Liquid Consistencies: Thin Post-Study Functional Oral Intake Scale (FOIS): 7- Total oral intake with no restrictions Recommend regular texture solids and thin liquids, pills whole with liquid. Avoid foods which are overly tough, crunchy, or hard to chew. Strategies recommended to promote clearance: take small bites, chew food well, alternate bites with sips of liquid, and maintain upright position with PO intake. Diet modification and further ST intervention is not warranted at this time. Recommend patient continue to monitor her dysphagia. If there are any changes or worsening/persistent symptoms, contact PCP at which point a repeat-assessment may be warranted. Suggested Referrals: The patient might benefit from a referral to: GI Indication for Referral: Radiologist noted anatomical abnormality (? Anterior cervical esophageal web). Recommend further imaging to investigate. Therapy Recommendations: Therapy will be discontinued Clinician - Supplemental, Miscellaneous Communication: It is important to note MBSS objective studies are snapshots in time and Patient function might vary with factors such as time of day or concomitant medical conditions. For this reason, the final treatment plan for this patient should rest with their medical care team. Additional recommendations should be considered with the totality of the Patient in mind. Thank for the opportunity to participate in the care of this patient. If you have any questions about the content of this report, please contact the [facility] at [facility]. Education: Education regarding findings from today's study and plans for therapy were provided to Patient and family/caregiver through Verbal Instruction. Understanding was expressed by the Patient and family/caregiver. Childbirth Educator Clinician/Clinical Fellow: No Supervisory Statement: N/A Speech Language Pathologist: Heena Rivas M.A., [facility]-INSTRUMENT FITTER
== END 2024-01-28 14:19 | disposition home or self-care (01) ==
LOC: HO.XRAY 14:18
PROVIDERS: PCP Internal Medicine; Visit Provider Nurse Practitioner Family
DX: R13.10 Dysphagia, unspecified (principal); R05.3 Chronic cough
CPT/HCPCS: 74230; 92611

== ENCOUNTER → 2024-01-28 14:30 | Outpatient (BNV) | payer OTHER, SELFPAY | PROVIDERS: PCP Internal Medicine; Visit Provider Physician Assistant Surgical | DX: R13.10 Dysphagia, unspecified (principal) | CPT/HCPCS: 74230 ==

== ENCOUNTER 2024-02-23 14:57 | Outpatient (AMB) | payer OTHER, SELFPAY ==
[2024-02-23 15:01] VITALS: BP 140/78; PULSE 91; O2SAT 96; BMI 20.7
--- NOTE | 2024-02-23 15:01 | MHC.OFFVIS ---
Vital Signs 02/23/24 15:01 Height 5 ft Weight 106 lb BMI 20.7 BP 140/78 H Blood Pressure Location Rt brachial Position Sitting Pulse 91 Pulse Source Pulse Oximeter Pulse Oximetry (%) 96 Oxygen Delivery Method Room Air Intake Visit Reasons: Cough Assistant Activities Director Required: No Supervisor Policy Change Clerks: Supervisor Policy Change Clerks offered & declined Allergies No Known Allergies Allergy (Verified 02/23/24 15:06) Medication List - Last Reconciled 02/23/24 by Lizzy Cerrato LPN albuterol sulfate 2.5 mg inhalation Q4-6H PRN amlodipine 5 mg PO DAILY aspirin 81 mg PO DAILY doxycycline hyclate 100 mg PO BID 10 days ipratropium-albuterol 0.5 mg-3 mg(2.5 mg base)/3 mL 3 mL inhalation BID prednisone 40 mg (2 x 20 mg) PO DAILY 5 days HPI HPI Cough: Details: Chica is pleasant 83 year old female, never smoker, with underlying HTN and legally blind. She was initially referred by PCP for pulmonary evaluation for chronic cough. She is accompanied by her daughter and ambulating in a wheelchair. She reports dry cough for many years and attributes it to prior exposure while living in [place], moved here last year, where there was extensive diesel fumes/exhaust in her neighborhood. Today her cough is more wet in nature and more persistent per daughter. She denies wheezing, chest tightness or dyspnea. She denies fevers or chills. She has been using nebulized albuterol however daughter feels it has not been as effective. She also noted worsening cough with food/fluid intake and presents today to review MBSS and CXR results. [facility] Medical History (Updated 02/23/24 @ 16:38 by Tiffanie Smith NP) Legally blind Hypertension Social History (Updated 12/29/23 @ 14:49 by Josy Price CMA) Patient Tobacco Use Status: Never used Tobacco Review of Systems Const Denies chills, Denies excessive sweating, Denies fever(s), Denies headache(s) and Denies night sweats Eyes Denies dry eyes, Denies irritation and Denies itchy eyes ENT Reports Normal hearing present, Denies headache(s), Denies nasal congestion, Denies nasal discharge, Denies post nasal drip and Denies sore throat Card Denies chest pain, Denies chest pain at rest, Denies chest pain with activity, Denies claudication, Denies leg edema, Denies dyspnea, Denies dyspnea on exertion, Denies orthopnea and Denies paroxysmal nocturnal dyspnea Resp Denies chest congestion, Denies excessive phlegm production, Denies pain on inspiration, Denies pain with cough, Denies dyspnea, Denies dyspnea on exertion, Denies stridor and Denies wheezing Musc Denies myalgias Neuro Reports Normal hearing present and Denies headache(s) Endo Denies excessive sweating Marcio/Lymph Denies lymphadenopathy Aller/Immun Denies itchy eyes, Denies seasonal rhinorrhea and Denies wheezing Physical Exam Vital Signs: Last Vital Signs Pulse 91 02/23/24 15:01 BP 140/78 H 02/23/24 15:01 Pulse Ox 96 02/23/24 15:01 Oxygen Delivery Method Room Air 02/23/24 15:01 BMI result Body Mass Index 20.7 Const General: cooperative, healthy appearing, comfortable, no acute distress, well developed and alert Nutritional Appearance: thin Orientation/consciousness: oriented to person and oriented to place Limitations: wheelchair HEENT Head: Yes normal to inspection, Yes normocephalic and Yes atraumatic Ears: hearing grossly normal bilaterally and external ears normal Eyes General: appearance normal, both eyes and all related structures Eyelids: Yes eyelids normal Sclerae: sclerae normal EOM: EOMs intact bilaterally Neck Neck: Yes normal visual inspection and Yes no lymphadenopathy Lymphatic: no lymphadenopathy noted Chest Chest palpation & inspection: normal inspection of the chest Resp Other: wet cough noted throughout visit Effort & Inspection: normal respiratory effort, able to speak in complete sentences, no audible wheezes, Actively coughing, no stridor, not tachypneic, no tripod positioning and no use of accessory muscles Auscultation: diminished lung sounds Cardio Jugular venous distension: no JVD Rate: regular rate Rhythm: regular rhythm Skin Other: warm, dry General skin exam: no rashes or lesions noted Neuro General: oriented to person and oriented to place Cranial nerves: Yes Normal hearing present Cognition (Neuro): normal cognition Gait exam (Neuro): Normal gait present Extrem General: Yes normal to inspection, Yes capillary refill normal, Yes no clubbing, cyanosis or edema and Yes no pedal edema Psych Appearance: grossly normal and well kempt Speech and movement: Normal speech and movement present and Clear speech present Affect: normal affect Attitude: cooperative Thought process: Normal thought process present Thought content: Normal thought content present Insight: Good insight present (Psych) Judgement: Good judgement present (Psych) Results Reviewed Results Reviewed: [address] [address] XRay Report Signed Patient: Chica Mosquera MR#: [id number] : 1940 Acct:[id number] Age/Sex: 83 / F ADM Date: 12/29/23 Loc: HO.XRAY Attending Dr: Tiffanie Smith NP Ordering Physician: Tiffanie Smith NP Date of Service: 12/29/23 Procedure(s): XR chest 2V Accession Number(s): [id number] cc: Ruthy Siegel MD; Tiffanie Smiht NP~ EXAMINATION: XR CHEST CLINICAL INFORMATION: Chronic cough COMPARISON: 01/13/2023 TECHNIQUE: 2 views of the chest were obtained. FINDINGS: Heart, mediastinum and vascularity within normal limits. Aortic calcified hyperinflation. No consolidations. Vague opacity identified posterior lung base on lateral view. No effusions or pneumothoraces. Demineralization and flowing osteophytes. XR/XR chest 2V IMPRESSION: Posterior opacity, possibly atelectasis, underlying lesion not excluded. Consider short-term radiographic follow-up. Electronically signed by: Kandy Mendoza MD 12/30/2023 08:42 AM [facility] Dictated By: Kandy Mendoza MD Signed By: <Electronically signed by Kandy Mendoza MD in OV> 12/30/23 0842 DD/ 1524 TD/TT: 12/29/23 1551 Shell Fisherman: Assessment & Plan Assessment & Plan (1) Chronic cough: Code(s): R05.3 - Chronic cough Category: Medical (2) Dysphagia: Code(s): R13.10 - Dysphagia, unspecified Category: Medical Plan Reviewed CXR which revealed possible pulmonary nodule, will send for chest CT to further evaluate. Patient requesting this order be sent to [facility]. 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 At this time, will treat bronchitic symptoms with Augmentin and recently was prescribed DuoNeb. Encouraged to use this BID. All questions were answered and patient is in agreement of plan. Will follow up to review CT results or sooner if needed. 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
== END 2024-02-23 15:28 | disposition home or self-care (01) ==
PROVIDERS: PCP Internal Medicine; Visit Provider Nurse Practitioner Family
DX: R05.3 Chronic cough (principal); R13.10 Dysphagia, unspecified
CPT/HCPCS: 99214

== ENCOUNTER → 2024-02-23 14:57 | Outpatient (BNVA) | payer OTHER, SELFPAY | PROVIDERS: PCP Internal Medicine; Visit Provider Nurse Practitioner Family | DX: R05.3 Chronic cough (principal); R13.10 Dysphagia, unspecified | CPT/HCPCS: 99212 ==

== ENCOUNTER 2024-03-17 10:18 | Outpatient (REF) | payer OTHER, SELFPAY ==
[2024-03-17 10:45] LABS: MANUAL DIFF FLAG NO
[2024-03-17 11:04] LABS: Basophils Percent Auto 0.6 % (0-2); Eosinophils Percent Auto 0.4 % (0-4); Hematocrit 35.7 % (37.0-47.0); Hemoglobin 11.4 g/dl (12.0-16.0); Imm Gran Abs Auto 0.02 X10*3/uL (0.00-0.03); Imm Gran Pct Auto 0.4 % (0.0-0.4); Lymphocytes Absolute Auto 1.1 X10*3/uL (1.2-4.9); Lymphocytes Percent Auto 20.1 % (20-40); Mean Corpuscular HGB Conc 31.9 g/dl (31.0-35.0); Mean Corpuscular Hemoglobin 29.8 pg (27.0-33.0); Mean Corpuscular Volume 93.5 fL (80.0-98.0); Mean Platelet Volume 10.2 fL (9.4-12.3); Monocytes Absolute Auto 0.6 X10*3/uL (0.1-1.2); Monocytes Percent Auto 10.5 % (2-11); Neutrophils Absolute Auto 3.7 x10*3/uL (2.0-8.3); Platelet Count 348 X10*3/uL (160-400); Red Blood Count 3.82 X10*6/uL (4.20-5.50); Red Cell Distribution Width 13.7 % (11.0-16.0); White Blood Count 5.4 X10*3/uL (4.8-10.8)
[2024-03-17 11:53] LABS: Alanine Aminotransferase 17 U/L (0-31); Alkaline Phosphatase 60 U/L (39-117); Anion Gap 11 (12-20); Aspartate Amino Transferase 24 U/L (5-31); Bilirubin Total 0.3 mg/dL (0.0-1.0); Blood Urea Nitrogen 29 mg/dL (9-16); Calcium 9.1 mg/dL (8.4-10.2); Carbon Dioxide 29 mmol/L (22-29); Chloride 105 mmol/L (96-108); Estimated Glomerular Filt Rate 39; Glucose Random 101 mg/dL (60-115); Potassium 3.7 mmol/L (3.3-5.1); Sodium 141 mmol/L (135-145); Total Protein 7.7 g/dL (6.5-8.0)
== END 2024-03-17 10:19 | disposition home or self-care (01) ==
LOC: HO.LAB 10:18
PROVIDERS: PCP Internal Medicine; Visit Provider Internal Medicine
DX: Z13.89 Encounter for screening for other disorder (principal)
CPT/HCPCS: 36415; 80053; 85025

== ENCOUNTER 2024-03-17 10:50 | Outpatient (REF) | payer OTHER, SELFPAY | END 2024-03-17 10:51 | disposition home or self-care (01) | LOC: HO.LAB 10:50 | PROVIDERS: PCP Internal Medicine; Visit Provider Internal Medicine | DX: I10 Essential (primary) hypertension (principal); F02.80 Dementia in other diseases classified elsewhere, unspecified severity, without behavioral disturbance, psychotic disturbance, mood disturbance, and anxiety; H35.30 Unspecified macular degeneration; R32 Unspecified urinary incontinence | CPT/HCPCS: 36415; 80053; 85025; 87086 ==

== ENCOUNTER 2024-03-22 13:44 | Outpatient (AMB) | payer OTHER, SELFPAY ==
[2024-03-22 14:10] VITALS: BP 122/60; PULSE 68; O2SAT 99; BMI 21.5
--- NOTE | 2024-03-22 14:10 | MHC.OFFVIS ---
Vital Signs 03/22/24 14:10 Height 5 ft Weight 110 lb 3.698 oz BMI 21.5 BP 122/60 Blood Pressure Location Lt brachial Position Sitting Pulse 68 Pulse Source Pulse Oximeter Pulse Oximetry (%) 99 Oxygen Delivery Method Room Air Intake Visit Reasons: Cough Television Specialist Required: No Accompanied by: Daughter Allergies No Known Allergies Allergy (Verified 03/22/24 14:18) Medication List - Last Reconciled 03/22/24 by Lizzy Cerrato LPN albuterol sulfate 2.5 mg inhalation Q4-6H PRN amlodipine 5 mg PO DAILY aspirin 81 mg PO DAILY donepezil 10 mg PO DAILY ipratropium-albuterol 0.5 mg-3 mg(2.5 mg base)/3 mL 3 mL inhalation BID HPI HPI Cough: Details: Chica is pleasant 83 year old female, never smoker, with underlying HTN and legally blind. She was initially referred by PCP for pulmonary evaluation for chronic dry cough. Today she is accompanied by her daughter. At the last visit, her cough was more productive than baseline, treated with Augmentin and reports significant improvement. She continues to use nebulizer QD with good effect, reporting dry cough is now intermittent. She denies any visits to urgent care or hospitalizations related to respiratory distress since the last visit. [facility] Medical History (Updated 02/23/24 @ 16:38 by Tiffanie Smith NP) Legally blind Hypertension Social History (Updated 12/29/23 @ 14:49 by Josy Price CMA) Patient Tobacco Use Status: Never used Tobacco Review of Systems Const Denies chills, Denies excessive sweating, Denies fever(s), Denies headache(s) and Denies night sweats Eyes Denies dry eyes, Denies irritation and Denies itchy eyes ENT Reports Normal hearing present, Denies headache(s), Denies nasal congestion, Denies nasal discharge, Denies post nasal drip and Denies sore throat Card Denies chest pain, Denies chest pain at rest, Denies chest pain with activity, Denies claudication, Denies leg edema, Denies dyspnea, Denies dyspnea on exertion, Denies orthopnea and Denies paroxysmal nocturnal dyspnea Resp Denies chest congestion, Denies excessive phlegm production, Denies pain on inspiration, Denies pain with cough, Denies dyspnea, Denies dyspnea on exertion, Denies stridor and Denies wheezing Musc Denies myalgias Neuro Reports Normal hearing present and Denies headache(s) Endo Denies excessive sweating Marcio/Lymph Denies lymphadenopathy Aller/Immun Denies itchy eyes, Denies seasonal rhinorrhea and Denies wheezing Physical Exam Vital Signs: Last Vital Signs Pulse 68 03/22/24 14:10 BP 122/60 03/22/24 14:10 Pulse Ox 99 03/22/24 14:10 Oxygen Delivery Method Room Air 03/22/24 14:10 BMI result Body Mass Index 21.5 Const General: cooperative, healthy appearing, comfortable, no acute distress, well developed and alert Nutritional Appearance: thin Orientation/consciousness: oriented to person and oriented to place Limitations: wheelchair HEENT Head: Yes normal to inspection, Yes normocephalic and Yes atraumatic Ears: hearing grossly normal bilaterally and external ears normal Eyes General: appearance normal, both eyes and all related structures Eyelids: Yes eyelids normal Sclerae: sclerae normal EOM: EOMs intact bilaterally Neck Neck: Yes normal visual inspection and Yes no lymphadenopathy Lymphatic: no lymphadenopathy noted Chest Chest palpation & inspection: normal inspection of the chest Resp Effort & Inspection: normal respiratory effort, able to speak in complete sentences, no audible wheezes, no stridor, not tachypneic, no tripod positioning and no use of accessory muscles Auscultation: diminished lung sounds Cardio Jugular venous distension: no JVD Rate: regular rate Rhythm: regular rhythm Skin Other: warm, dry General skin exam: no rashes or lesions noted Neuro General: oriented to person and oriented to place Cranial nerves: Yes Normal hearing present Cognition (Neuro): normal cognition Gait exam (Neuro): Normal gait present Extrem General: Yes normal to inspection, Yes capillary refill normal, Yes no clubbing, cyanosis or edema and Yes no pedal edema Psych Appearance: grossly normal and well kempt Speech and movement: Normal speech and movement present and Clear speech present Affect: normal affect Attitude: cooperative Thought process: Normal thought process present Thought content: Normal thought content present Insight: Fair insight present (Psych) Judgement: Fair judgement present (Psych) Assessment & Plan Assessment & Plan (1) Chronic cough: Code(s): R05.3 - Chronic cough Category: Medical (2) Dysphagia: Code(s): R13.10 - Dysphagia, unspecified Category: Medical Plan Prior CXR revealed possible pulmonary nodule and order placed to will send for chest CT to further evaluate. Patient requesting this order be sent to [facility], awaiting insurance authorization. At this time, she reports good control of respiratory symptoms using DuoNeb QD, advised to continue. All questions were answered and patient is in agreement of plan. Will follow up to review CT results or sooner if needed. Coding Level of Care Code Est Pt Level 4 (81469) Diagnoses Chronic cough R05.3 Dysphagia R13.10
== END 2024-03-22 14:38 | disposition home or self-care (01) ==
PROVIDERS: PCP Internal Medicine; Visit Provider Nurse Practitioner Family
DX: R05.3 Chronic cough (principal); R13.10 Dysphagia, unspecified
CPT/HCPCS: 99214

== ENCOUNTER → 2024-03-22 13:44 | Outpatient (BNVA) | payer OTHER, SELFPAY | PROVIDERS: PCP Internal Medicine; Visit Provider Nurse Practitioner Family | DX: R05.3 Chronic cough (principal); R13.10 Dysphagia, unspecified | CPT/HCPCS: 99212 ==

== ENCOUNTER 2024-06-28 13:40 | Outpatient (AMB) | payer OTHER, SELFPAY ==
--- NOTE | 2024-06-28 12:35 | A.OFFVIS_ITS ---
Vital Signs 06/28/24 13:44 Height 5 ft Weight 111 lb 5.335 oz BMI 21.7 BP 142/64 H Blood Pressure Location Lt brachial Position Sitting Pulse 69 Pulse Source Pulse Oximeter Pulse Oximetry (%) 97 Oxygen Delivery Method Room Air Intake Visit Reasons: Cough Allergies No Known Allergies Allergy (Verified 03/22/24 14:18) HPI HPI Cough: Details: Chica is pleasant 84 year old female, never smoker, with underlying HTN and legally blind. She was initially referred by PCP for pulmonary evaluation for chronic dry cough. Today she is accompanied by her daughter. At the last visit, her cough was more productive than baseline, treated with Augmentin and reported significant improvement. She continues to use nebulizer QD with good effect, reporting intermittent dry cough. Denies dyspnea, wheezing or chest tightness. She denies any visits to urgent care or hospitalizations related to respiratory distress since the last visit. Previously entered referral to GI for question of cervical web contributing to dysphagia, however cough has improved, so deferred at this time. Today she presents to review chest CT results. [facility] Medical History (Updated 06/28/24 @ 14:42 by Tiffanie Smith NP) Legally blind Hypertension Social History (Updated 12/29/23 @ 14:49 by Josy Price CMA) Patient Tobacco Use Status: Never used Tobacco Review of Systems Const Denies chills, Denies excessive sweating, Denies fever(s), Denies headache(s) and Denies night sweats Eyes Denies dry eyes, Denies irritation and Denies itchy eyes ENT Reports Normal hearing present, Denies headache(s), Denies nasal congestion, Denies nasal discharge, Denies post nasal drip and Denies sore throat Card Denies chest pain, Denies chest pain at rest, Denies chest pain with activity, Denies claudication, Denies leg edema, Denies dyspnea, Denies dyspnea on exertion, Denies orthopnea and Denies paroxysmal nocturnal dyspnea Resp Denies chest congestion, Denies excessive phlegm production, Denies pain on inspiration, Denies pain with cough, Denies dyspnea, Denies dyspnea on exertion, Denies stridor and Denies wheezing Musc Denies myalgias Neuro Reports Normal hearing present and Denies headache(s) Endo Denies excessive sweating Marcio/Lymph Denies lymphadenopathy Aller/Immun Denies itchy eyes and Denies wheezing Physical Exam Vital Signs: Last Vital Signs Pulse 69 06/28/24 13:44 BP 142/64 H 06/28/24 13:44 Pulse Ox 97 06/28/24 13:44 Oxygen Delivery Method Room Air 06/28/24 13:44 BMI result Body Mass Index 21.7 Const General: cooperative, healthy appearing, comfortable, no acute distress, well developed and alert Nutritional Appearance: thin Orientation/consciousness: oriented to person and oriented to place Limitations: wheelchair HEENT Head: Yes normal to inspection, Yes normocephalic and Yes atraumatic Ears: hearing grossly normal bilaterally and external ears normal Eyes General: appearance normal, both eyes and all related structures Eyelids: Yes eyelids normal Sclerae: sclerae normal EOM: EOMs intact bilaterally Neck Neck: Yes normal visual inspection and Yes no lymphadenopathy Lymphatic: no lymphadenopathy noted Chest Chest palpation & inspection: normal inspection of the chest Resp Effort & Inspection: normal respiratory effort, able to speak in complete sentences, no audible wheezes, no stridor, not tachypneic, no tripod positioning and no use of accessory muscles Auscultation: diminished lung sounds Cardio Jugular venous distension: no JVD Rate: regular rate Rhythm: regular rhythm Skin Other: warm, dry General skin exam: no rashes or lesions noted Neuro General: oriented to person and oriented to place Cranial nerves: Yes Normal hearing present Cognition (Neuro): normal cognition Gait exam (Neuro): Normal gait present Extrem General: Yes normal to inspection, Yes capillary refill normal, Yes no clubbing, cyanosis or edema and Yes no pedal edema Psych Appearance: grossly normal and well kempt Speech and movement: Normal speech and movement present and Clear speech present Affect: normal affect Attitude: cooperative Thought process: Normal thought process present Thought content: Normal thought content present Insight: Fair insight present (Psych) Judgement: Fair judgement present (Psych) Results Reviewed Results Reviewed: PROCEDURE: CT CHEST without CONTRAST INDICATION: Pulmonary nodules. Abnormal findings. TECHNIQUE: CT of the chest was performed without contrast. Automated mA/kV exposure control was utilized and patient examination was performed in strict accordance with principles of ALARA. RADIATION AMOUNT: 220.7 mGy-cm. COMPARISON: CT chest 03/10/23. Chest XR 12/29/23-report only. FINDINGS: The heart is normal in size without pericardial effusion. Severe coronary calcifications. Thoracic lymph nodes are not enlarged. Aberrant right subclavian artery, normal variant anatomy and potential cause of dysphagia. There is no pleural effusion, pleural thickening, or pneumothorax. The airways are patent. Minimal scattered pleural and parenchymal scarring. Lungs are clear without consolidation, interstitial disease. Micronodule along the fissures, compatible with an intrapulmonary lymph nodes, stable. Few other stable micronodules likely benign. No new suspicious pulmonary nodules identified. Upper abdomen demonstrates no acute pathology. There are no acute fractures. No suspicious bony lesions. IMPRESSION: 1.No acute thoracic findings. 2.Stable micronodules, likely benign. No new suspicious pulmonary nodules identified. 3.Severe coronary calcifications. Signed by Chelsea Almanza MD Electronically signed on 04/09/2024 1:17:00 PM by CHELSEA ALMANZA MD Assessment & Plan Assessment & Plan (1) Chronic cough: Code(s): R05.3 - Chronic cough Category: Medical (2) Dysphagia: Code(s): R13.10 - Dysphagia, unspecified Category: Medical (3) Coronary artery calcification seen on CAT scan: Code(s): I25.10 - Atherosclerotic heart disease of [place] coronary artery without angina pectoris Category: Medical Plan Reviewed chest CT which revealed Severe coronary calcifications and aberrant right subclavian artery, normal variant anatomy and potential cause of dysphagia, minimal scattered pleural and parenchymal scarring and micronodule along the fissures, compatible with an intrapulmonary lymph nodes, stable. No need for further imaging at this time. Discussed potential vascular referral however patient frail and not likely a surgical candidate so will defer at this time. We did discuss evaluation through cardiology for severe coronary calcifications which family was agreeable, will enter. At this time, she reports good control of respiratory symptoms using DuoNeb QD, advised to continue. All questions were answered and patient is in agreement of plan. Will follow up in 3-6 months or sooner if needed. Orders: Referrals Cardiology Referral I25.10 - Atherosclerotic heart disease of [place] coronary artery without angina pectoris Coding Level of Care Code Est Pt Level 4 (44850) Diagnoses Chronic cough R05.3 Dysphagia R13.10 Coronary artery calcification seen on CAT scan I25.10
[2024-06-28 13:44] VITALS: BP 142/64; PULSE 69; O2SAT 97; BMI 21.7
== END 2024-06-28 14:06 | disposition home or self-care (01) ==
LOC: HO.HPS 13:40
PROVIDERS: PCP Internal Medicine; Visit Provider Nurse Practitioner Family
DX: R05.3 Chronic cough (principal); R13.10 Dysphagia, unspecified; I25.10 Atherosclerotic heart disease of native coronary artery without angina pectoris
CPT/HCPCS: 99214

== ENCOUNTER → 2024-06-28 13:40 | Outpatient (BNVA) | payer OTHER, SELFPAY | PROVIDERS: PCP Internal Medicine; Visit Provider Nurse Practitioner Family | DX: R05.3 Chronic cough (principal); R13.10 Dysphagia, unspecified; I25.10 Atherosclerotic heart disease of native coronary artery without angina pectoris | CPT/HCPCS: 99212 ==

== ENCOUNTER 2024-08-24 15:31 | Outpatient (REF) | payer OTHER, SELFPAY ==
[2024-08-24 16:33] LABS: Alanine Aminotransferase 16 U/L (0-31); Albumin Level 4.2 g/dL (3.5-5.0); Alkaline Phosphatase 67 U/L (39-117); Anion Gap 10 (12-20); Aspartate Amino Transferase 22 U/L (5-31); Blood Urea Nitrogen 25 mg/dL (9-16); Calcium 9.9 mg/dL (8.4-10.2); Carbon Dioxide 31 mmol/L (22-29); Chloride 102 mmol/L (96-108); Estimated Glomerular Filt Rate 38; Potassium 4.3 mmol/L (3.3-5.1); Sodium 139 mmol/L (135-145); Total Protein 7.1 g/dL (6.5-8.0)
== END 2024-08-24 15:32 | disposition home or self-care (01) ==
LOC: HO.LAB 15:31
PROVIDERS: PCP Internal Medicine; Visit Provider Internal Medicine
DX: I12.9 Hypertensive chronic kidney disease with stage 1 through stage 4 chronic kidney disease, or unspecified chronic kidney disease (principal); N18.4 Chronic kidney disease, stage 4 (severe)
CPT/HCPCS: 36415; 80053